=== PATIENT | male | born 1990 | race African-American/Black ===

== ENCOUNTER 2017-03-08 12:30 | Emergency (ER) | payer OTHER | END 2017-03-08 13:28 | disposition home or self-care (01) | DX: J40 Bronchitis, not specified as acute or chronic (principal); J06.9 Acute upper respiratory infection, unspecified; I10 Essential (primary) hypertension ==

== ENCOUNTER 2019-02-06 19:29 | Emergency (ER) | payer OTHER ==
[2019-02-06] MEDS ORDERED: IPRATROPIUM/ALBUTEROL 3 ML NEB INH STA (20:34)
--- NOTE | 2019-02-06 20:53 | XRAY Report ---
Reason: Cough Procedure Date: 02/06/2019 Accession Number: [id number] / [id number] Procedure: XR - Chest 2 View X-Ray CPT Code: 00459 FULL RESULT: EXAM: CHEST RADIOGRAPHY EXAM DATE: 02/06/2019 08:42 PM. CLINICAL HISTORY: Cough. COMPARISON: None. TECHNIQUE: 2 views. FINDINGS: Lungs/Pleura: No focal opacities evident. No pleural effusion. No pneumothorax. Normal volumes. Mediastinum: Heart and mediastinal contours are unremarkable. Other: None. IMPRESSION: Normal 2-view chest radiography. [facility]
--- NOTE | 2019-02-06 21:08 | ED Physician Documentation ---
PD HPI URI - Stated complaint Stated Complaint: COUGH, SOA - Chief complaint Chief Complaint: Resp - History obtained from History obtained from: Patient - History of Present Illness Timing - onset: How many weeks ago (4) Timing duration: Weeks (4) Timing details: Gradual onset Pain level max: 2 Pain level now: 2 Severity Comments: mild Associated symptoms: No: Fever, Chills, Sweats, Sinus pain, Sore throat, Chest pain Contributing factors: No: Sick contact, Travel, Immunocompromised Improves by: Medication. No: Rest Worsened by: No: Activity, Breathing, Position Review of Systems Constitutional: reports: Reviewed and negative Eyes: reports: Reviewed and negative Ears: reports: Reviewed and negative Nose: reports: Reviewed and negative Throat: reports: Reviewed and negative Cardiac: reports: Reviewed and negative Respiratory: reports: Reviewed and negative GI: reports: Reviewed and negative : reports: Reviewed and negative Skin: reports: Reviewed and negative Musculoskeletal: reports: Reviewed and negative Neurologic: reports: Reviewed and negative Psychiatric: reports: Reviewed and negative Endocrine: reports: Reviewed and negative Immunocompromised: reports: Reviewed and negative PD PAST MEDICAL HISTORY - Past Medical History Cardiovascular: Hypertension Respiratory: None - Past Surgical History Past Surgical History: No Derm: Other (Reviewed and not pertinent) - Present Medications Home Medications: Ambulatory Orders Medication Instructions Recorded Confirmed Amoxicillin 500 mg PO TID #15 capsule 03/08/17 Benzonatate [Tessalon] 100 mg PO TID PRN #20 capsule 03/08/17 Dexamethasone [Decadron] 4 mg PO DAILY #5 tablet 03/08/17 guaiFENesin/CODEINE [Robitussin AC] 10 ml PO Q6H PRN #240 ml 03/08/17 hydroCHLOROthiazide 25 mg PO DAILY 03/08/17 03/08/17 [Hydrochlorothiazide] Albuterol Sulf [Ventolin Hfa 1 - 2 puffs INH Q4HR PRN #1 inhaler 02/06/19 Inhaler] Cetirizine HCl/Pseudoephedrine 1 each PO BID PRN #60 tab.er.12h 02/06/19 [Zyrtec-D Tablet] Fluticasone [Flonase] 1 sprays KASH BID 30 Days #1 bottle 02/06/19 - Allergies Allergies/Adverse Reactions: Allergies Allergy/AdvReac Type Severity Reaction Status Date / Time No Known Drug Allergies Allergy Verified 02/06/19 19:41 - Living Situation Living Situation: reports: Alone Living Arrangement: reports: At home - Social History Does the pt smoke?: No Smoking Status: Never smoker Does the pt drink ETOH?: Yes Does the pt have substance abuse?: No - Family History Family history: reports: Other (Reviewed and not pertinent) - Immunizations Immunizations are current?: Yes PD ED PE NORMAL - Vitals Vital signs reviewed: Yes - General General: Alert and oriented X 3, No acute distress - HEENT HEENT: PERRL, Other (Inflamed nasal turbinates) - Neck Neck: Supple, no meningeal sign - Cardiac Cardiac: RRR, No murmur - Respiratory Respiratory: Clear bilaterally - Abdomen Abdomen: Normal bowel sounds, Soft, Non tender, Non distended - Derm Derm: Warm and dry - Extremities Extremities: No deformity - Neuro Neuro: Alert and oriented X 3 - Psych Psych: Normal mood, Normal affect Results - Vitals Vitals: Vital Signs - 24 hr 02/06/19 02/06/19 19:40 20:45 Temperature 37.0 C Heart Rate 84 88 Respiratory 18 18 Rate Blood Pressure 157/107 H O2 Saturation 98 Oxygen O2 Source Room air - Rads (name of study) Chest 2 view Radiology: Final report received, Other (Within normal limits) PD MEDICAL DECISION MAKING - ED course ED course: 28-year-old male with seasonal allergies. Unremarkable chest x-ray. Discharged with Zyrtec-D and Flonase. Departure - Departure Disposition: 01 Home, Self Care Clinical Impression: Allergic rhinitis Qualifiers: Allergic rhinitis trigger: unspecified Allergic rhinitis seasonality: unspecified Qualified Code(s): J30.9 - Allergic rhinitis, unspecified Upper respiratory infection Qualifiers: URI type: unspecified URI Qualified Code(s): J06.9 - Acute upper respiratory infection, unspecified Condition: Good Instructions: ED Allergy Seasonal, ED URI Viral Follow-Up: MIRANDA MUÑOZ MD [Primary Care Provider] - Prescriptions: Albuterol Sulf [Ventolin Hfa Inhaler] 1 - 2 puffs INH Q4HR PRN #1 inhaler PRN Reason: Shortness Of Air/Wheezing Cetirizine HCl/Pseudoephedrine [Zyrtec-D Tablet] 1 each PO BID PRN #60 tab.er.12h PRN Reason: nasal congestion Fluticasone [Flonase] 1 sprays KASH BID 30 Days #1 bottle Comments: Take allergy medicines as prescribed. Follow-up with PCP within 24 hours. Return with worsening symptoms.
[2019-02-06 21:16] VITALS: BP 159/102
== END 2019-02-06 21:26 | disposition home or self-care (01) ==
LOC: ED 19:29
DX: J30.9 Allergic rhinitis, unspecified (principal); J06.9 Acute upper respiratory infection, unspecified; I10 Essential (primary) hypertension
CPT/HCPCS: 71046; 94640; 99283